=== PATIENT | female | born 2000 | race African-American/Black ===

== ENCOUNTER 2021-05-21 22:54 | Emergency (ER) | payer OTHER ==
[~2021-05-21] VITALS: Ht 162.6 cm; Wt 73.9 kg
[2021-05-21 22:56] VITALS: BP 131/81
[2021-05-22 01:17] LABS: HEMATOCRIT 32.6 % (36.0-47.0); HEMOGLOBIN 10.2 g/dl (12.0-15.5); MEAN CORPUSCULAR HEMOGLOBIN 22.9 pg (27.0-33.0); MEAN CORPUSCULAR HGB CONC 31.3 g/dl (32.0-36.5); MEAN CORPUSCULAR VOLUME 73.3 fl (80.0-96.0); PLATELET COUNT, AUTOMATED 204 10^3/uL (150-450); RED BLOOD COUNT 4.45 10^6/uL (4.00-5.40); WHITE BLOOD COUNT 8.9 10^3/uL (4.0-10.0)
[2021-05-22 01:38] LABS: AMPHETAMINES LEVEL URINE NEGATIVE (NEGATIVE); BARBITURATES URINE NEGATIVE (NEGATIVE); BENZODIAZEPINES URINE NEGATIVE (NEGATIVE); CANNABINOIDS URINE NEGATIVE (NEGATIVE); COCAINE METABOLITE URINE NEGATIVE (NEGATIVE); METHADONE URINE NEGATIVE (NEGATIVE); OPIATES URINE NEGATIVE (NEGATIVE); PHENCYCLIDINE URINE NEGATIVE (NEGATIVE)
[2021-05-22 02:16] LABS: ACETAMINOPHEN LEVEL < 2.0 UG/ML (10.0-30.0); ALBUMIN 3.4 GM/DL (3.2-5.2); ALT/SGPT 18 U/L (12-78); BILIRUBIN,DIRECT < 0.1 MG/DL (0.0-0.2); BILIRUBIN,TOTAL 0.2 MG/DL (0.2-1.0); BLOOD UREA NITROGEN 7 MG/DL (7-18); CALCIUM LEVEL 8.8 MG/DL (8.5-10.1); CARBON DIOXIDE LEVEL 28 MEQ/L (21-32); CHLORIDE LEVEL 107 MEQ/L (98-107); ETHYL ALCOHOL (ETHANOL) < 0.003 % (0.000-0.010); GLOMERULAR FILTRATION RATE > 60.0 (>60); GLUCOSE, FASTING 79 MG/DL (70-100); SALICYLATE LEVEL < 1.7 MG/DL (5.0-30.0); SODIUM LEVEL 141 MEQ/L (136-145); TOTAL PROTEIN 7.2 GM/DL (6.4-8.2)
== END 2021-05-22 04:08 | disposition home or self-care (01) ==
LOC: M ED 22:54
DX: R45.851 Suicidal ideations (principal); F43.0 Acute stress reaction; F17.290 Nicotine dependence, other tobacco product, uncomplicated

== ENCOUNTER 2022-01-02 07:05 | Emergency (ER) | payer OTHER ==
[~2022-01-02] VITALS: Ht 167.6 cm; Wt 165.0 kg
[2022-01-02] MEDS ORDERED: NEOSPORIN OINT 0.9 GM PKT TOP ONE (08:40)
[2022-01-02] MEDS ORDERED: LIDOCAINE 2% W/EPINEPHRINE 20ML VIAL **PRES FREE INJ ONE (08:40)
[2022-01-02] MEDS ORDERED: IBUPROFEN 400MG TAB PO ONE (10:20)
[2022-01-02] MEDS ORDERED: PERCOCET 5MG/325MG TAB PO ONE (10:20)
[2022-01-02] MEDS ORDERED: PERC5TAB12 PO (10:47)
[2022-01-02] MEDS ORDERED: IBUP-1114 PO (10:48)
[2022-01-02] MEDS ORDERED: NEOM28.3 TP (10:49)
[2022-01-02 11:00] VITALS: BP 115/74
== END 2022-01-02 11:33 | disposition home or self-care (01) ==
LOC: EDBD 07:05 → M ED 07:05
DX: S01.419A Laceration without foreign body of unspecified cheek and temporomandibular area, initial encounter (principal); S32.020A Wedge compression fracture of second lumbar vertebra, initial encounter for closed fracture; M54.50 Low back pain, unspecified; V49.40XA Driver injured in collision with unspecified motor vehicles in traffic accident, initial encounter; Y92.9 Unspecified place or not applicable; Y93.9 Activity, unspecified; Y99.9 Unspecified external cause status